=== PATIENT | female | born 1985 | race Caucasian/White ===

== ENCOUNTER → 2017-07-10 | Day surgery (SDC) | payer OTHER ==
--- NOTE | 2017-07-09 18:13 | History & Physical Pre-Op ---
General Information and HPI History of Present Illness: This patient is a 31-year-old 1 para 1 with severe pelvic pain currently using control pills with no relief. She is admitted today for diagnostic laparoscopy. Allergies/Medications Allergies: Coded Allergies: cefaclor (From CECLOR) (Severe, ANAPHYLAXIS 07/09/17) maria eugenia (RASH AND WHEEZING 07/09/17) Home Med list Cholecalciferol (Vitamin D3) (Vitamin D) (Unknown Strength) TABLET (Unknown Dose) PO DAILY SUPPLEMENT (Reported) Cyanocobalamin (Vitamin B-12) (Unknown Strength) TABLET (Unknown Dose) PO DAILY SUPPLEMENT (Reported) Estradiol Valerate/Dienogest (Natazia 28 Tablet) 3-2-1(28) TABLET 1 TAB PO DAILY CONTROL (Reported) Loratadine (Claritin) 10 MG TABLET 1 TAB PO PRN ALLERGIES (Reported) Past History Surgical History Pertinent Surgical History: N Review of Systems Review of Systems Constitutional: Reports: no symptoms. EENTM: Reports: no symptoms. Cardiovascular: Reports: no symptoms. Respiratory: Reports: no symptoms. GI: Reports: see HPI. Genitourinary: Reports: see HPI. Musculoskeletal: Reports: no symptoms. Skin: Reports: no symptoms. Neurological/Psychological: Reports: no symptoms. Hematologic/Endocrine: Reports: no symptoms. Immunologic/Allergic: Reports: no symptoms. All Other Systems: Reviewed and Negative Exam & Diagnostic Data Last 24 Hrs of Vital Signs/I&O Intake & Output 07/09 1600 07/09 0800 07/09 0000 Intake Total Output Total Balance Patient 227 lb Weight Physical Exam: HEENT: Normocephalic atraumatic Chest: Clear to auscultation bilaterally Cardiovascular: Normal S1-S2 Abdomen: Soft nontender no mass Pelvic: Deferred to the OR Extremities: No clubbing cyanosis or edema Neurologic: Nonfocal Assessment/Plan Assessment/Plan: Pelvic pain Plan: Diagnostic laparoscopy As Ranked By This Provider Problem List: 1. Pelvic pain
[~2017-07-10] VITALS: Ht 170.2 cm; Wt 103.0 kg
[~2017-07-10] MED LIST: CLARITIN10 M1 PO; DOCUSATE SODIU100 M3 PO; IBUPROFEN800 M1 PO; NATAZIA 28 TAB1 EACH PO; VITAMIN B-121000 MC3 PO; VITAMIN D1000 UNIT PO
--- NOTE | 2017-07-10 09:08 | Operative Report ---
Operative/Inv Procedure Report Surgery Date: 07/10/17 Name of Procedure: Diagnostic laparoscopy Pre-Operative Diagnosis: Pelvic pain Post-Operative Diagnosis: Same Estimated Blood Loss: scant Surgeon/It Quality Analyst: Guanaco Fall MD Anesthesia: general endotracheal tube Operative/Procedure Note Note: The patient was brought to the operating room placed on the OR table in the dorsal supine position. When she was given adequate general anesthesia she was successfully intubated. She was repositioned in the modified dorsal lithotomy. He was prepped and draped in the usual sterile fashion. Speculum was inserted into the vagina and the cervix was visualized. A single-tooth tenaculum was attached to the anterior lip of the cervix and an acorn cannula was inserted into the cervical os and attached to the tenaculum. Speculum was then removed. A Fry catheter was placed and drained clear yellow urine. The surgeon's gloves were changed and attention was paid to the abdomen. An infraumbilical skin incision was made with the scalpel and a Veress needle was passed into the abdominal cavity. The abdomen was insufflated with CO2 gas under high flow and low pressure until an adequate pneumoperitoneum had been achieved. At this point the Veress needle was removed and replaced with a 5 mm disposable trochars. Through to the trocar sleeve the camera was placed and confirmed good anatomic location and hemostasis. A suprapubic stab incision was made with the scalpel and a 5 mm trocar was inserted under direct visualization. Through this port a blunt probe was placed for manipulation of the pelvic organs. The patient was placed into Trendelenburg position. The uterus was immediately identified and noted to be normal. There were no fibroids noted or other pathology. The ovaries bilaterally also appeared to be normal as well as the fallopian tubes. The cul-de-sac and the bladder reflection were closely inspected for signs of endometriosis however none were found. The upper abdomen was explored and the liver and gallbladder appeared to be normal as well there were some filmy adhesions of the intestine to the right sidewall. The pelvis and abdomen were copiously irrigated and suctioned. The CO2 gas was allowed to escape the trocar sleeves were removed and the incisions were closed using 3-0 Biosyn. The vaginal instruments were removed and hemostasis was verified. The patient was then awakened and sent to recovery in good condition. All needle, sponge, and instrument counts were correct at the end of the procedure 2.
== END ==
LOC: STS 03:13
DX: R10.2 Pelvic and perineal pain (principal)
CPT/HCPCS: 81025; C9399; J2250